=== PATIENT | female | born 1955 | race Caucasian/White ===

== ENCOUNTER 2024-06-29 13:00 | Outpatient (RCR) | payer MEDICARE, SELFPAY ==
--- NOTE | 2024-04-26 16:00 | PT.OIE ---
Current Diagnoses Localized adiposity (04/26/24) Lipomatosis, not elsewhere classified (04/26/24) Lymphedema, not elsewhere classified (04/26/24) Edema, unspecified (04/26/24) Visit Care Team Role Provider Type WENDY Hurtado FNP-North Attending Provider Non-Staff Family Provider Primary Care Provider Referring Provider Specialty: Family Practice Address: [address] [place] [address], [address], [place], [address] Email: Physical Therapy Initial Evaluation PT-OP-A Visit Information Start: 04/25/24 17:10 Freq: Status: Active Protocol: Document 04/26/24 10:47 SAK (Rec: 04/26/24 12:04 SAK [id number]) Out-Patient Physical Therapy Visit Information Visit Information Visit Type Initial Evaluation Visit Start Time 10:45 Visit Number 1 Evaluation Information Evaluation Date 04/26/24 PT-OP-B Current Condition Start: 04/25/24 17:10 Freq: Status: Active Protocol: Document 04/26/24 10:47 SAK (Rec: 04/26/24 12:04 SAK [id number]) Current Condition History of Current Condition Onset Date 62 yrs. Current Complaints worsening swelling in legs. History of Current Condition Had swelling in her legs since her teens, no treatment until recently. 2-3 years ago after researching online started using vibration plate, tries to walk and use E-bike but limited due to OA, no local place to go to pool. Doing anti-inflammatory diet. Worsening swelling in leg right greater than left. sot diagnosed, was up to 325 now down to 248 on semi-glutide. wears knee high compression garments current ones thinks 20-30 mm Hg. Legs have gotten worsen with puberty, childbirth, and menopause, continues to worsen, has nodules under skin, brusises easily, and has signififcant hyperextension in knees. Left leg hurts worst. Treatment Goals Patient/Caregiver Goals decreasing some of the swelling PT-OP-C Subjective Start: 04/25/24 17:10 Freq: Status: Active Protocol: Document 04/26/24 10:45 SAK (Rec: 04/27/24 08:12 SAK [id number]) Patient Questionnaires Lymphedema Life Impact Score Lymphedema Score 47 PT-OP-F Manual Assessment Start: 04/25/24 17:10 Freq: Status: Active Protocol: Document 04/26/24 10:45 SAK (Rec: 04/27/24 08:12 SAK [id number]) Manual Assessments Joint Mobility Assessment Joint Mobility Assessment hypermobility at knees PT-OP-H Neuro Start: 04/25/24 17:10 Freq: Status: Active Protocol: Document 04/26/24 10:45 SAK (Rec: 04/27/24 08:12 SAK [id number]) Sensation Evaluation Gross Sensation Gross Sensation WNL PT-OP-J Posture/Palpation/Skin Start: 04/25/24 17:10 Freq: Status: Active Protocol: Document 04/26/24 10:47 SAK (Rec: 04/26/24 12:04 SAK [id number]) Skin Assessment Edema Assessment Bilateral Leg Edema Type Non-Pitting Edema Appearance Dimpled,Puffy Subjective Edema Description Pain Comments palpable nodules brendan LE's, worst medial right LE sup/med knee PT-OP-K Range of Motion Start: 04/25/24 17:10 Freq: Status: Active Protocol: Document 04/26/24 10:45 SAK (Rec: 04/27/24 08:12 SAK [id number]) Shoulder Goniometric Range of Motion Shoulder brendan Shoulder ROM WFL Yes Elbow/Forearm Range of Motion Elbow/Forearm brendan Elbow/Forearm ROM WFL Yes Hip Goniometric Range of Motion Hip brendan Hip ROM WFL Yes Knee Goniometric Range of Motion Knee brendan Knee ROM WFL No Knee ROM Limitations Knee ROM Limitations Swelling Comments swelling and lipedema Ankle and Foot Goniometric Range of Motion Ankle and Foot brendan Ankle/Foot ROM WFL Yes PT-OP-N Lymphedema Start: 04/25/24 17:10 Freq: Status: Active Protocol: Document 04/26/24 10:47 SAK (Rec: 04/26/24 12:04 SAK [id number]) Lymphedema Measurements Upper Extremity Circumference Measurements left MCP 20.4 cm Dorsum of Hand 20.2 cm Wrist 17.5 cm 5 cm From Wrist Crease 21.2 cm 10 cm From Wrist Crease 24.1 cm 15 cm From Wrist Crease 26.8 cm 20 cm From Wrist Crease 27.9 cm 25 cm From Wrist Crease 33.6 cm 30 cm From Wrist Crease 36 cm 35 cm From Wrist Crease 46 cm 40 cm From Wrist Crease 43.3 cm Elbow Joint 33.6 cm right MCP 20.6 cm Dorsum of Hand 21.2 cm Wrist 17.8 cm 5 cm From Wrist Crease 19.9 cm 10 cm From Wrist Crease 25.7 cm 15 cm From Wrist Crease 28.9 cm 20 cm From Wrist Crease 30.6 cm 25 cm From Wrist Crease 39.3 cm 30 cm From Wrist Crease 50.3 cm 35 cm From Wrist Crease 48.2 cm 40 cm From Wrist Crease 48.2 cm Elbow Joint 30.7 cm Lower Extremity Circumference Measurements left MT Heads 24 cm Mid-foot 24.8 cm Medial Malleolus 33.3 cm 10 cm From Medial Malleolus 46.7 cm 20 cm From Medial Malleolus 54 cm 30 cm From Medial Malleolus 55.5 cm 40 cm From Medial Malleolus 58.8 cm 50 cm From Medial Malleolus 65.8 cm 60 cm From Medial Malleolus 68 cm 70 cm From Medial Malleolus 81.3 cm Knee Joint 58.8 cm right MT Heads 24.8 cm Mid-foot 26 cm Medial Malleolus 31.3 cm 10 cm From Medial Malleolus 49.7 cm 20 cm From Medial Malleolus 55.1 cm 30 cm From Medial Malleolus 58.3 cm 40 cm From Medial Malleolus 61.2 cm 50 cm From Medial Malleolus 65.5 cm 60 cm From Medial Malleolus 70 cm 70 cm From Medial Malleolus 75.5 cm Knee Joint 58.3 cm - waist 113.5 cm widest hip 132.4 cm under breasts 103.5cm PT-OP-Q Treatments Start: 04/25/24 17:10 Freq: Status: Active Protocol: Document 04/26/24 10:45 CEDRICK (Rec: 04/27/24 08:12 [facility] [id number]) Lymphedema Treatment Manual Lymphatic Drainage Location initiated withpatient instruction Duration 25 Lymphedema Wrapping Other Not done today, discussed bandaging and garments Sequential Lymphedema Exercises Comments instructed Compression Garment Assessment Compression Garment Assessment Details discussed, recommend Bioflect or Juzo sensation Patient Education Lymphedema Pathology instructed and issued HO Lymphedema Prevention instructed and issued HO Lymphedema Precautions instructed and issued HO Compression Garments discussed options Self Manual Lymphatic Drainage instructed and issued HO PT-OP-T Assessment and Plan Start: 04/25/24 17:10 Freq: Status: Active Protocol: Document 04/26/24 10:45 [facility] (Rec: 04/27/24 08:12 [facility] [id number]) Physical Therapy Assessment Rehab Potential Rehabilitation Potential Good Evaluation Complexity Number of Personal Factors/Comorbidities 1-2 Number of Body Systems Impaired 3 Clinical Presentation at Evaluation Evolving Impairments Impairments Activity Tolerance,Edema,Pain, Soft Tissue Mobility Goals Two Impairment LYmphedema Life Impact scale 47% Short Term Goal (STG) Decrease Lymphedema Life Impact Scale to no greater than 35% as measure of improved activity tolerance and quality of life. STG Duration 06/09/24 Director Of Oncology Goal (LTG) Decrease Lymphedema Life Impact Scale to no greater than 20% as measure of improved activity tolerance and quality of life. LTG Duration 07/27/24 One Impairment Lipedema and lymphedema brendan LE 's, lipedema brendan UE's Short Term Goal (STG) Patient will be instructed in all aspects of lymphedema and lipedema self-care to include skin care, elevation, self- massage, self-bandaging/ compression options, and lymphedema exercises. STG Duration 06/09/24 Custodial Goal (LTG) Decrease patient?s lymphedema and lipedema to a stable level (no increase or decrease greater than 1 cm over the course of 1 week), patient to be independent with all aspects of self-care for lymphedema, and will obtain appropriate compression garment for lymphedema management in the home. LTG Duration 07/27/24 Assessment Summary Assessment Patient presents to PT with function-limiting lipedema and lymphedema (lipolymphedema) brendan LE's with lipedema evident in UE's as well. Patient reports has always had larger legs, got worse with at puberty, with childbirth, and menopause, and continues to worsent. Not diagnosed until recently, no treatment except does wear knee high compression stockings. 2-3 years ago after researching online started using vibration plate, tries to walk and use E-bike but limited due to OA, no local place to go to pool for aquatic exercise. Doing anti-inflammatory diet. Worsening swelling in legs vs UE's right greater than left. Trying to lose weight; was up to 325 now down to 248 on semi-glutide. Wears knee high compression garments current ones thinks 20-30 mm Hg. Legs have gotten worsen with puberty, childbirth, and menopause, continues to worsen , has nodules under skin, brusises easily, and has signififcant hyperextension in knees. Left leg hurts worst. Feel she would benefit from PT for Complete Decongestive Therapy to help her achieve the above goals. POC was discussed and patient was in agreement. [ End ] Physical Therapy Plan Frequency and Duration Frequency of Treatment 20 Duration of treatment (weeks) 12 Plan of Care Start Date 04/27/24 Plan of Care End Date 07/28/24 Therapeutic Interventions Therapeutic Interventions Home Exercise Program, Lymphedema Management,Manual Therapy,Patient/Caregiver Education,Self-Care/Home Management,Soft Tissue Mobilization,Taping, Therapeutic Activities, Therapeutic Exercises Modalities Vasopneumatic Devices Next Visit Focus/Plan Next Note Type Treatment Note Next Visit Plan Continue CDT
--- NOTE | 2024-04-26 16:00 | PT.OPPOC ---
Physical, Occupational & Speech Therapy At [facility] Current Diagnoses Localized adiposity (04/26/24) Lipomatosis, not elsewhere classified (04/26/24) Lymphedema, not elsewhere classified (04/26/24) Edema, unspecified (04/26/24) Visit Care Team Role Provider Type WENDY Hurtado, INFORMATION SECURITY ASSOCIATE-C Attending Provider Non-Staff Family Provider Primary Care Provider Referring Provider Specialty: Family Practice Address: [address] [place] [address], [address], [place], [address] Email: Plan Of Care PT-OP-B Current Condition Start: 04/25/24 17:10 Freq: Status: Active Protocol: Document 04/26/24 10:47 SAK (Rec: 04/26/24 12:04 SAK [id number]) Current Condition History of Current Condition Onset Date 62 yrs. Current Complaints worsening swelling in legs. History of Current Condition Had swelling in her legs since her teens, no treatment until recently. 2-3 years ago after researching online started using vibration plate, tries to walk and use E-bike but limited due to OA, no local place to go to pool. Doing anti-inflammatory diet. Worsening swelling in leg right greater than left. sot diagnosed, was up to 325 now down to 248 on semi-glutide. wears knee high compression garments current ones thinks 20-30 mm Hg. Legs have gotten worsen with puberty, childbirth, and menopause, continues to worsen, has nodules under skin, brusises easily, and has signififcant hyperextension in knees. Left leg hurts worst. Treatment Goals Patient/Caregiver Goals decreasing some of the swelling PT-OP-T Assessment and Plan Start: 04/25/24 17:10 Freq: Status: Active Protocol: Document 04/26/24 10:45 SAK (Rec: 04/27/24 08:12 SAK [id number]) Physical Therapy Assessment Rehab Potential Rehabilitation Potential Good Evaluation Complexity Number of Personal Factors/Comorbidities 1-2 Number of Body Systems Impaired 3 Clinical Presentation at Evaluation Evolving Impairments Impairments Activity Tolerance,Edema,Pain, Soft Tissue Mobility Goals Two Impairment LYmphedema Life Impact scale 47% Short Term Goal (STG) Decrease Lymphedema Life Impact Scale to no greater than 35% as measure of improved activity tolerance and quality of life. STG Duration 06/09/24 Airline Pilot/First Officer Goal (LTG) Decrease Lymphedema Life Impact Scale to no greater than 20% as measure of improved activity tolerance and quality of life. LTG Duration 07/27/24 One Impairment Lipedema and lymphedema brendan LE 's, lipedema brendan UE's Short Term Goal (STG) Patient will be instructed in all aspects of lymphedema and lipedema self-care to include skin care, elevation, self- massage, self-bandaging/ compression options, and lymphedema exercises. STG Duration 06/09/24 Airline Pilot/First Officer Goal (LTG) Decrease patient?s lymphedema and lipedema to a stable level (no increase or decrease greater than 1 cm over the course of 1 week), patient to be independent with all aspects of self-care for lymphedema, and will obtain appropriate compression garment for lymphedema management in the home. LTG Duration 07/27/24 Assessment Summary Assessment Patient presents to PT with function-limiting lipedema and lymphedema (lipolymphedema) brendan LE's with lipedema evident in UE's as well. Patient reports has always had larger legs, got worse with at puberty, with childbirth, and menopause, and continues to worsent. Not diagnosed until recently, no treatment except does wear knee high compression stockings. 2-3 years ago after researching online started using vibration plate, tries to walk and use E-bike but limited due to OA, no local place to go to pool for aquatic exercise. Doing anti-inflammatory diet. Worsening swelling in legs vs UE's right greater than left. Trying to lose weight; was up to 325 now down to 248 on semi-glutide. Wears knee high compression garments current ones thinks 20-30 mm Hg. Legs have gotten worsen with puberty, childbirth, and menopause, continues to worsen , has nodules under skin, brusises easily, and has signififcant hyperextension in knees. Left leg hurts worst. Feel she would benefit from PT for Complete Decongestive Therapy to help her achieve the above goals. POC was discussed and patient was in agreement. [ End ] Physical Therapy Plan Frequency and Duration Frequency of Treatment 20 Duration of treatment (weeks) 12 Plan of Care Start Date 04/27/24 Plan of Care End Date 07/28/24 Therapeutic Interventions Therapeutic Interventions Home Exercise Program, Lymphedema Management,Manual Therapy,Patient/Caregiver Education,Self-Care/Home Management,Soft Tissue Mobilization,Taping, Therapeutic Activities, Therapeutic Exercises Modalities Vasopneumatic Devices Next Visit Focus/Plan Next Note Type Treatment Note Next Visit Plan Continue CDT Plan of Care Dates Plan of Care Start Date 04/27/24 Plan of Care End Date 07/28/24 Electronically Signed by: Shayla Osorio, PT 04/27/24 1505 If you are in agreement with this Plan of Care, please return a signed and dated copy. I have reviewed this Plan of Care and certify that the skilled therapy services above are required to meet the patient?s needs. Physician Signature Date Printed Name and Credentials Clinical Instructor Signature Printed Name and Credentials
--- NOTE | 2024-05-23 12:15 | PT-OP ANOTE ---
cancelled due to insurance issues.
--- NOTE | 2024-05-26 10:33 | PT.OTN ---
Current Diagnoses Localized adiposity (05/26/24) Lipomatosis, not elsewhere classified (05/26/24) Lymphedema, not elsewhere classified (05/26/24) Edema, unspecified (05/26/24) Physical Therapy Treatment Note PT-OP-A Visit Information Start: 04/25/24 17:10 Freq: Status: Active Protocol: Document 05/26/24 09:04 SAK (Rec: 05/26/24 10:32 SAK Laptop) Out-Patient Physical Therapy Visit Information Visit Information Visit Type Treatment Note Visit Start Time 09:00 Visit Stop Time 10:25 Visit Number 2 Evaluation Information Evaluation Date 04/26/24 PT-OP-B Current Condition Start: 04/25/24 17:10 Freq: Status: Active Protocol: Document 05/26/24 09:04 SAK (Rec: 05/26/24 10:32 SAK Laptop) Current Condition History of Current Condition Onset Date 62 yrs. Current Complaints worsening swelling in legs. History of Current Condition Had swelling in her legs since her teens, no treatment until recently. 2-3 years ago after researching online started using vibration plate, tries to walk and use E-bike but limited due to OA, no local place to go to pool. Doing anti-inflammatory diet. Worsening swelling in leg right greater than left. sot diagnosed, was up to 325 now down to 248 on semi-glutide. wears knee high compression garments current ones thinks 20-30 mm Hg. Legs have gotten worsen with puberty, childbirth, and menopause, continues to worsen, has nodules under skin, brusises easily, and has signififcant hyperextension in knees. Left leg hurts worst. PT-OP-C Subjective Start: 04/25/24 17:10 Freq: Status: Active Protocol: Document 05/26/24 09:04 SAK (Rec: 05/26/24 10:32 SAK Laptop) OP-PT Subjective Patient Comments Patient Comments Reports talked with [employer], garments not covered. Patient will be ordering online by herself, will measure herself. Has lost 5 more pounds after switching to Tirzerpide. PT-OP-F Manual Assessment Start: 04/25/24 17:10 Freq: Status: Active Protocol: Document 04/26/24 10:45 SAK (Rec: 04/27/24 08:12 SAK [id number]) Manual Assessments Joint Mobility Assessment Joint Mobility Assessment hypermobility at knees PT-OP-H Neuro Start: 04/25/24 17:10 Freq: Status: Active Protocol: Document 04/26/24 10:45 SAK (Rec: 04/27/24 08:12 [facility] [id number]) Sensation Evaluation Gross Sensation Gross Sensation WNL PT-OP-J Posture/Palpation/Skin Start: 04/25/24 17:10 Freq: Status: Active Protocol: Document 04/26/24 10:47 SAK (Rec: 04/26/24 12:04 [facility] [id number]) Skin Assessment Edema Assessment Bilateral Leg Edema Type Non-Pitting Edema Appearance Dimpled,Puffy Subjective Edema Description Pain Comments palpable nodules brendan LE's, worst medial right LE sup/med knee PT-OP-K Range of Motion Start: 04/25/24 17:10 Freq: Status: Active Protocol: Document 04/26/24 10:45 SAK (Rec: 04/27/24 08:12 [facility] [id number]) Shoulder Goniometric Range of Motion Shoulder brendan Shoulder ROM WFL Yes Elbow/Forearm Range of Motion Elbow/Forearm brendan Elbow/Forearm ROM WFL Yes Hip Goniometric Range of Motion Hip brendan Hip ROM WFL Yes Knee Goniometric Range of Motion Knee brendan Knee ROM WFL No Knee ROM Limitations Knee ROM Limitations Swelling Comments swelling and lipedema Ankle and Foot Goniometric Range of Motion Ankle and Foot brendan Ankle/Foot ROM WFL Yes PT-OP-N Lymphedema Start: 04/25/24 17:10 Freq: Status: Active Protocol: Document 05/26/24 09:04 SAK (Rec: 05/26/24 10:32 [facility] Laptop) Lymphedema Measurements Upper Extremity Circumference Measurements left MCP 20.4 cm Dorsum of Hand 20.2 cm Wrist 17.5 cm 5 cm From Wrist Crease 21.2 cm 10 cm From Wrist Crease 24.1 cm 15 cm From Wrist Crease 26.8 cm 20 cm From Wrist Crease 27.9 cm 25 cm From Wrist Crease 33.6 cm 30 cm From Wrist Crease 36 cm 35 cm From Wrist Crease 46 cm 40 cm From Wrist Crease 43.3 cm Elbow Joint 33.6 cm right MCP 20.6 cm Dorsum of Hand 21.2 cm Wrist 17.8 cm 5 cm From Wrist Crease 19.9 cm 10 cm From Wrist Crease 25.7 cm 15 cm From Wrist Crease 28.9 cm 20 cm From Wrist Crease 30.6 cm 25 cm From Wrist Crease 39.3 cm 30 cm From Wrist Crease 50.3 cm 35 cm From Wrist Crease 48.2 cm 40 cm From Wrist Crease 48.2 cm Elbow Joint 30.7 cm Lower Extremity Circumference Measurements left MT Heads 24 cm Mid-foot 24.8 cm Medial Malleolus 33.3 cm 10 cm From Medial Malleolus 46.7 cm 20 cm From Medial Malleolus 54 cm 30 cm From Medial Malleolus 55.5 cm 40 cm From Medial Malleolus 58.8 cm 50 cm From Medial Malleolus 65.8 cm 60 cm From Medial Malleolus 68 cm 70 cm From Medial Malleolus 81.3 cm Knee Joint 58.8 cm right MT Heads 24.8 cm Mid-foot 26 cm Medial Malleolus 31.3 cm 10 cm From Medial Malleolus 49.7 cm 20 cm From Medial Malleolus 55.1 cm 30 cm From Medial Malleolus 58.3 cm 40 cm From Medial Malleolus 61.2 cm 50 cm From Medial Malleolus 65.5 cm 60 cm From Medial Malleolus 70 cm 70 cm From Medial Malleolus 75.5 cm Knee Joint 58.3 cm - waist 113.5 cm widest hip 132.4 cm under breasts 103.5cm PT-OP-Q Treatments Start: 04/25/24 17:10 Freq: Status: Active Protocol: Document 05/26/24 09:04 [facility] (Rec: 05/26/24 10:32 [facility] Laptop) Lymphedema Treatment Manual Lymphatic Drainage Location brendan LE's with patient review technique Duration 50 Comments Sequential pneumatic pump opp side receiving MLD: 30 mm Hg max. Lymphedema Wrapping Body Location brendan LE's ankles to knees Materials Tricofix size G, Artiflex (2 ea side) and Comprilan (8,10 ea side), reported felt good, will consider bandaging above knees next session. Also issued loaner size L velcro compression bandage for trial. Sequential Lymphedema Exercises Comments Nu Step x 6 min L1 after bandaging Compression Garment Assessment Compression Garment Assessment Details Pt to order Bioflect Patient Education Lymphedema Pathology reviewed Lymphedema Prevention reviewed Lymphedema Precautions reviewed Compression Garments further discussion, pt. to order Self Manual Lymphatic Drainage reviewed PT-OP-T Assessment and Plan Start: 04/25/24 17:10 Freq: Status: Active Protocol: Document 05/26/24 09:04 SAK (Rec: 05/26/24 10:32 [facility] Laptop) Physical Therapy Assessment Impairments Impairments Activity Tolerance,Edema,Pain, Soft Tissue Mobility Goals Two Impairment LYmphedema Life Impact scale 47% Short Term Goal (STG) Decrease Lymphedema Life Impact Scale to no greater than 35% as measure of improved activity tolerance and quality of life. STG Duration 06/09/24 Custodial Goal (LTG) Decrease Lymphedema Life Impact Scale to no greater than 20% as measure of improved activity tolerance and quality of life. LTG Duration 07/27/24 One Impairment Lipedema and lymphedema brendan LE 's, lipedema brendan UE's Short Term Goal (STG) Patient will be instructed in all aspects of lymphedema and lipedema self-care to include skin care, elevation, self- massage, self-bandaging/ compression options, and lymphedema exercises. STG Duration 06/09/24 Checking Department Supervisor Goal (LTG) Decrease patient?s lymphedema and lipedema to a stable level (no increase or decrease greater than 1 cm over the course of 1 week), patient to be independent with all aspects of self-care for lymphedema, and will obtain appropriate compression garment for lymphedema management in the home. LTG Duration 07/27/24 Assessment Summary Assessment No change in circumferential measurements due to no treatment since eval due to waiting for insurance. Patient compliant to wearing knee high, has not yet gotten Bioflect, found out insurance won't cover but is going to order on her own. Trial sequential pneumatic pump today with good tolerance and decrease in circumferential measurements. REcommend consideration for home use. Physical Therapy Plan Frequency and Duration Frequency of Treatment 20 Duration of treatment (weeks) 12 Plan of Care Start Date 04/27/24 Plan of Care End Date 07/28/24 Therapeutic Interventions Therapeutic Interventions Home Exercise Program, Lymphedema Management,Manual Therapy,Patient/Caregiver Education,Self-Care/Home Management,Soft Tissue Mobilization,Taping, Therapeutic Activities, Therapeutic Exercises Modalities Vasopneumatic Devices Next Visit Focus/Plan Next Note Type Treatment Note Next Visit Plan Assess response to compression bandaging. Consider bandaging above knee to upper thigh. Continue CDT, consider requesting sequential pneumatic pump.
--- NOTE | 2024-05-30 16:53 | PT.OTN ---
Current Diagnoses Localized adiposity (05/30/24) Lipomatosis, not elsewhere classified (05/30/24) Lymphedema, not elsewhere classified (05/30/24) Edema, unspecified (05/30/24) Physical Therapy Treatment Note PT-OP-A Visit Information Start: 04/25/24 17:10 Freq: Status: Active Protocol: Document 05/30/24 13:13 SAK (Rec: 05/30/24 13:36 SAK Laptop) Out-Patient Physical Therapy Visit Information Visit Information Visit Type Treatment Note Visit Start Time 13:01 Visit Stop Time 14:25 Visit Number 3 Evaluation Information Evaluation Date 04/26/24 PT-OP-B Current Condition Start: 04/25/24 17:10 Freq: Status: Active Protocol: Document 05/30/24 13:13 SAK (Rec: 05/30/24 13:36 SAK Laptop) Current Condition History of Current Condition Onset Date 62 yrs. Current Complaints worsening swelling in legs, hips, abdomen. History of Current Condition Had swelling in her legs since her teens, no treatment until recently. 2-3 years ago after researching online started using vibration plate, tries to walk and use E-bike but limited due to OA, no local place to go to pool. Doing anti-inflammatory diet. Worsening swelling in leg right greater than left. sot diagnosed, was up to 325 now down to 248 on semi-glutide. wears knee high compression garments current ones thinks 20-30 mm Hg. Legs have gotten worsen with puberty, childbirth, and menopause, continues to worsen, has nodules under skin, brusises easily, and has signififcant hyperextension in knees. Left leg hurts worst. More edema by the end of the day. 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 Compliant with skin care, elevating, self MLD, compression, exercise, and using vibration plate. Very interested in obtaining sequential pneumatic pump. Has ordered Bioflect compression garments; pantyhose style. Was able to walk at grocery store for short trip instead of use motorized cart while bandaged. Increased LE lymphedema end of day, has returned to work and notices difference. Very interested in obtaining sequential pneumatic pump for home use. PT-OP-F Manual Assessment Start: 04/25/24 17:10 Freq: Status: Active Protocol: Document 04/26/24 10:45 SAK (Rec: 04/27/24 08:12 SAK [id number]) Manual Assessments Joint Mobility Assessment Joint Mobility Assessment hypermobility at knees PT-OP-H Neuro Start: 04/25/24 17:10 Freq: Status: Active Protocol: Document 04/26/24 10:45 SAK (Rec: 04/27/24 08:12 SAK [id number]) Sensation Evaluation Gross Sensation Gross Sensation WNL PT-OP-J Posture/Palpation/Skin Start: 04/25/24 17:10 Freq: Status: Active Protocol: Document 04/26/24 10:47 SAK (Rec: 04/26/24 12:04 SAK [id number]) Skin Assessment Edema Assessment Bilateral Leg Edema Type Non-Pitting Edema Appearance Dimpled,Puffy Subjective Edema Description Pain Comments palpable nodules brendan LE's, worst medial right LE sup/med knee PT-OP-K Range of Motion Start: 04/25/24 17:10 Freq: Status: Active Protocol: Document 04/26/24 10:45 SAK (Rec: 04/27/24 08:12 SAK [id number]) Shoulder Goniometric Range of Motion Shoulder brendan Shoulder ROM WFL Yes Elbow/Forearm Range of Motion Elbow/Forearm brenadn Elbow/Forearm ROM WFL Yes Hip Goniometric Range of Motion Hip brendan Hip ROM WFL Yes Knee Goniometric Range of Motion Knee brendan Knee ROM WFL No Knee ROM Limitations Knee ROM Limitations Swelling Comments swelling and lipedema Ankle and Foot Goniometric Range of Motion Ankle and Foot brendan Ankle/Foot ROM WFL Yes PT-OP-N Lymphedema Start: 04/25/24 17:10 Freq: Status: Active Protocol: Document 05/30/24 13:13 CEDRICK (Rec: 05/30/24 13:36 [facility] Laptop) Lymphedema Measurements Lower Extremity Circumference Measurements left MT Heads 24.3 cm Mid-foot 24.8 cm Medial Malleolus 28.8 cm 10 cm From Medial Malleolus 46.7 cm 20 cm From Medial Malleolus 53.8 cm 30 cm From Medial Malleolus 54.8 cm 40 cm From Medial Malleolus 58.3 cm 50 cm From Medial Malleolus 63.8 cm 60 cm From Medial Malleolus 66.2 cm 70 cm From Medial Malleolus 82.9 cm Knee Joint 58.3 cm right MT Heads 24.7 cm Mid-foot 24.3 cm Medial Malleolus 29.9 cm 10 cm From Medial Malleolus 50.7 cm 20 cm From Medial Malleolus 56.2 cm 30 cm From Medial Malleolus 58 cm 40 cm From Medial Malleolus 60.7 cm 50 cm From Medial Malleolus 67.4 cm 60 cm From Medial Malleolus 69.5 cm 70 cm From Medial Malleolus 74.8 cm Knee Joint 58 cm - waist 113.5 cm widest hip 132.4 cm under breasts 103.5cm PT-OP-Q Treatments Start: 04/25/24 17:10 Freq: Status: Active Protocol: Document 05/30/24 13:13 CEDRICK (Rec: 05/30/24 13:36 [facility] Laptop) Lymphedema Treatment Manual Lymphatic Drainage Location brendan LE's with patient review technique Duration 50 Comments Sequential pneumatic pump opp side receiving MLD: 30 mm Hg max. Lymphedema Wrapping Body Location brendan LE's ankles to upper thighs Materials Tricofix size G, Artiflex (4 ea side) and Comprilan (8,10x2 , 12x2 ea side). Sequential Lymphedema Exercises Duration 10 Comments Nu Step x 10 min L1 after bandaging Compression Garment Assessment Compression Garment Assessment Details Has ordered Bioflect pantyhose style for LE's, will consider for UE's Patient Education Compression Garments pt. has ordered Bioflect garments, brought all other garments for review Other Pt advised on considering layering compression or using bandaging over Bioflect when highly physically active PT-OP-T Assessment and Plan Start: 04/25/24 17:10 Freq: Status: Active Protocol: Document 05/30/24 13:13 SAK (Rec: 05/30/24 13:36 SAK Laptop) Physical Therapy Assessment Impairments Impairments Activity Tolerance,Edema,Pain, Soft Tissue Mobility Goals Two Impairment LYmphedema Life Impact scale 47% Short Term Goal (STG) Decrease Lymphedema Life Impact Scale to no greater than 35% as measure of improved activity tolerance and quality of life. 05/30/24: Patient demosntrating much improved understanding of lipolymphedema and how to manage. Self bandaging difficult. Doing dry brushing every night, exercises, elevates. STG Duration 06/09/24 [facility] Goal (LTG) Decrease Lymphedema Life Impact Scale to no greater than 20% as measure of improved activity tolerance and quality of life. LTG Duration 07/27/24 One Impairment Lipedema and lymphedema brendan LE 's, lipedema brendan UE's Short Term Goal (STG) Patient will be instructed in all aspects of lymphedema and lipedema self-care to include skin care, elevation, self- massage, self-bandaging/ compression options, and lymphedema exercises. 05/30/24: goal met STG Duration 06/09/24 [facility] Goal (LTG) Decrease patient?s lymphedema and lipedema to a stable level (no increase or decrease greater than 1 cm over the course of 1 week), patient to be independent with all aspects of self-care for lymphedema, and will obtain appropriate compression garment for lymphedema management in the home. 05/30/24: goal progress LTG Duration 07/27/24 Assessment Summary Assessment Patient has been seen in physical therapy for over 30 days and continues to have challenges in managing her lipo-lymphedema. Her legs are more swollen by the end of the work day and she has to use a motorized scooter at grocery store. She has been compliant with elevation, self MLD, exercise, skin care, and compression. Despite this her lipo-lymphedema is difficult to manage. 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 Due to body size from lipedema has difficulty reaching her LE's. Feel she would benefit highly from the use of a sequential pneumatic pump to assist her in her self care. She is highly receptive and interested in the use of a sequential pneumatic pump. Due to the lipedema affecting her thighs and abdomen she will need pants style garment for most beneficial treatment. Physical Therapy Plan Frequency and Duration Frequency of Treatment 20 Duration of treatment (weeks) 12 Plan of Care Start Date 04/27/24 Plan of Care End Date 07/28/24 Therapeutic Interventions Therapeutic Interventions Home Exercise Program, Lymphedema Management,Manual Therapy,Patient/Caregiver Education,Self-Care/Home Management,Soft Tissue Mobilization,Taping, Therapeutic Activities, Therapeutic Exercises Modalities Vasopneumatic Devices Next Visit Focus/Plan Next Note Type Treatment Note Next Visit Plan Continue CDT, evaluate fit of Bioflect, continue bandaging and use of compression tights for compression until receives . Request order for sequential pneumatic pump.
--- NOTE | 2024-05-31 09:12 | PT.OTN ---
Current Diagnoses Localized adiposity (05/31/24) Lipomatosis, not elsewhere classified (05/31/24) Lymphedema, not elsewhere classified (05/31/24) Edema, unspecified (05/31/24) Physical Therapy Treatment Note PT-OP-A Visit Information Start: 04/25/24 17:10 Freq: Status: Active Protocol: Document 05/31/24 08:11 SAK (Rec: 05/31/24 08:32 SAK Laptop) Out-Patient Physical Therapy Visit Information Visit Information Visit Type Treatment Note Visit Start Time 08:13 Visit Stop Time 09:43 Visit Number 4 Evaluation Information Evaluation Date 04/26/24 PT-OP-B Current Condition Start: 04/25/24 17:10 Freq: Status: Active Protocol: Document 05/31/24 08:11 SAK (Rec: 05/31/24 08:32 SAK Laptop) Current Condition History of Current Condition Onset Date 62 yrs. Current Complaints worsening swelling in legs, hips, abdomen. History of Current Condition Had swelling in her legs since her teens, no treatment until recently. 2-3 years ago after researching online started using vibration plate, tries to walk and use E-bike but limited due to OA, no local place to go to pool. Doing anti-inflammatory diet. Worsening swelling in leg right greater than left. sot diagnosed, was up to 325 now down to 248 on semi-glutide. wears knee high compression garments current ones thinks 20-30 mm Hg. Legs have gotten worsen with puberty, childbirth, and menopause, continues to worsen, has nodules under skin, brusises easily, and has signififcant hyperextension in knees. Left leg hurts worst. More edema by the end of the day. Diagnosed with lipedema 2 years ago, feels has known has had her whole life but difficulty getting doctors to understand and has increased swelling end of day including into feet (lipo-lymphedema) Treatment Goals Patient/Caregiver Goals decreasing lipo-lymphedema, and be able to self manage PT-OP-C Subjective Start: 04/25/24 17:10 Freq: Status: Active Protocol: Document 05/31/24 08:11 SAK (Rec: 05/31/24 08:32 SAK Laptop) OP-PT Subjective Patient Comments Patient Comments No new c/o. Hasn't received Bioflect garment yet. Brought bandages for bandaging, considering wearing Bioflect during the day, bandage at night. States she is learning a lot from PT, working on her breathing and exercise, doing self massage, elevation, and skin care. Patient Reported Progress Improving PT-OP-F Manual Assessment Start: 04/25/24 17:10 Freq: Status: Active Protocol: Document 04/26/24 10:45 SAK (Rec: 04/27/24 08:12 [facility] [id number]) Manual Assessments Joint Mobility Assessment Joint Mobility Assessment hypermobility at knees PT-OP-H Neuro Start: 04/25/24 17:10 Freq: Status: Active Protocol: Document 04/26/24 10:45 SAK (Rec: 04/27/24 08:12 [facility] [id number]) Sensation Evaluation Gross Sensation Gross Sensation WNL PT-OP-J Posture/Palpation/Skin Start: 04/25/24 17:10 Freq: Status: Active Protocol: Document 04/26/24 10:47 SAK (Rec: 04/26/24 12:04 [facility] [id number]) Skin Assessment Edema Assessment Bilateral Leg Edema Type Non-Pitting Edema Appearance Dimpled,Puffy Subjective Edema Description Pain Comments palpable nodules brendan LE's, worst medial right LE sup/med knee PT-OP-K Range of Motion Start: 04/25/24 17:10 Freq: Status: Active Protocol: Document 04/26/24 10:45 SAK (Rec: 04/27/24 08:12 [facility] [id number]) Shoulder Goniometric Range of Motion Shoulder brendan Shoulder ROM WFL Yes Elbow/Forearm Range of Motion Elbow/Forearm brendan Elbow/Forearm ROM WFL Yes Hip Goniometric Range of Motion Hip brendan Hip ROM WFL Yes Knee Goniometric Range of Motion Knee brendan Knee ROM WFL No Knee ROM Limitations Knee ROM Limitations Swelling Comments swelling and lipedema Ankle and Foot Goniometric Range of Motion Ankle and Foot brendan Ankle/Foot ROM WFL Yes PT-OP-N Lymphedema Start: 04/25/24 17:10 Freq: Status: Active Protocol: Document 05/30/24 13:13 SAK (Rec: 05/30/24 13:36 SAK Laptop) Lymphedema Measurements Lower Extremity Circumference Measurements left MT Heads 24.3 cm Mid-foot 24.8 cm Medial Malleolus 28.8 cm 10 cm From Medial Malleolus 46.7 cm 20 cm From Medial Malleolus 53.8 cm 30 cm From Medial Malleolus 54.8 cm 40 cm From Medial Malleolus 58.3 cm 50 cm From Medial Malleolus 63.8 cm 60 cm From Medial Malleolus 66.2 cm 70 cm From Medial Malleolus 82.9 cm Knee Joint 58.3 cm right MT Heads 24.7 cm Mid-foot 24.3 cm Medial Malleolus 29.9 cm 10 cm From Medial Malleolus 50.7 cm 20 cm From Medial Malleolus 56.2 cm 30 cm From Medial Malleolus 58 cm 40 cm From Medial Malleolus 60.7 cm 50 cm From Medial Malleolus 67.4 cm 60 cm From Medial Malleolus 69.5 cm 70 cm From Medial Malleolus 74.8 cm Knee Joint 58 cm - waist 113.5 cm widest hip 132.4 cm under breasts 103.5cm PT-OP-Q Treatments Start: 04/25/24 17:10 Freq: Status: Active Protocol: Document 05/31/24 08:11 [facility] (Rec: 05/31/24 09:11 [facility] Laptop) Lymphedema Treatment Manual Lymphatic Drainage Location brendan LE's with patient review technique Duration 50 Comments Sequential pneumatic pump opp side receiving MLD: 30 mm Hg max. Lymphedema Wrapping Body Location brendan LE's ankles to knees Materials Tricofix size G, Artiflex (2 ea side) and Comprilan (8,10 ea side). Sequential Lymphedema Exercises Duration 10 Comments Nu Step x 10 min L1 after bandaging Compression Garment Assessment Compression Garment Assessment Details Has ordered Bioflect pantyhose style for LE's, will consider for UE's Patient Education Self Manual Lymphatic Drainage continue education during MLD. PT-OP-T Assessment and Plan Start: 04/25/24 17:10 Freq: Status: Active Protocol: Document 05/31/24 08:11 [facility] (Rec: 05/31/24 08:32 [facility] Laptop) Physical Therapy Assessment Impairments Impairments Activity Tolerance,Edema,Pain, Soft Tissue Mobility Goals Two Impairment LYmphedema Life Impact scale 47% Short Term Goal (STG) Decrease Lymphedema Life Impact Scale to no greater than 35% as measure of improved activity tolerance and quality of life. 05/30/24: Patient demosntrating much improved understanding of lipolymphedema and how to manage. Self bandaging difficult. Doing dry brushing every night, exercises, elevates. STG Duration 06/09/24 Cardiac Cath Tech Goal (LTG) Decrease Lymphedema Life Impact Scale to no greater than 20% as measure of improved activity tolerance and quality of life. LTG Duration 07/27/24 One Impairment Lipedema and lymphedema brendan LE 's, lipedema brendan UE's Short Term Goal (STG) Patient will be instructed in all aspects of lymphedema and lipedema self-care to include skin care, elevation, self- massage, self-bandaging/ compression options, and lymphedema exercises. 05/30/24: goal met STG Duration 06/09/24 Cardiac Cath Tech Goal (LTG) Decrease patient?s lymphedema and lipedema to a stable level (no increase or decrease greater than 1 cm over the course of 1 week), patient to be independent with all aspects of self-care for lymphedema, and will obtain appropriate compression garment for lymphedema management in the home. 05/30/24: goal progress LTG Duration 07/27/24 Assessment Summary Assessment Patient continues to demonstrate improved understanding of lipolymphedema self care. Further instruction in self bandaging today with request for to knees only due to work today, should receive Bioflect soon. Physical Therapy Plan Frequency and Duration Frequency of Treatment 20 Duration of treatment (weeks) 12 Plan of Care Start Date 04/27/24 Plan of Care End Date 07/28/24 Therapeutic Interventions Therapeutic Interventions Home Exercise Program, Lymphedema Management,Manual Therapy,Patient/Caregiver Education,Self-Care/Home Management,Soft Tissue Mobilization,Taping, Therapeutic Activities, Therapeutic Exercises Modalities Vasopneumatic Devices Next Visit Focus/Plan Next Note Type Treatment Note
--- NOTE | 2024-05-31 09:40 | PT.OTN ---
Current Diagnoses Localized adiposity (05/31/24) Lipomatosis, not elsewhere classified (05/31/24) Lymphedema, not elsewhere classified (05/31/24) Edema, unspecified (05/31/24) Physical Therapy Treatment Note PT-OP-A Visit Information Start: 04/25/24 17:10 Freq: Status: Active Protocol: Document 05/31/24 08:11 SAK (Rec: 05/31/24 08:32 SAK Laptop) Out-Patient Physical Therapy Visit Information Visit Information Visit Type Treatment Note Visit Start Time 08:13 Visit Stop Time 09:43 Visit Number 4 Evaluation Information Evaluation Date 04/26/24 PT-OP-B Current Condition Start: 04/25/24 17:10 Freq: Status: Active Protocol: Document 05/31/24 08:11 SAK (Rec: 05/31/24 08:32 SAK Laptop) Current Condition History of Current Condition Onset Date 62 yrs. Current Complaints worsening swelling in legs, hips, abdomen. History of Current Condition Had swelling in her legs since her teens, no treatment until recently. 2-3 years ago after researching online started using vibration plate, tries to walk and use E-bike but limited due to OA, no local place to go to pool. Doing anti-inflammatory diet. Worsening swelling in leg right greater than left. sot diagnosed, was up to 325 now down to 248 on semi-glutide. wears knee high compression garments current ones thinks 20-30 mm Hg. Legs have gotten worsen with puberty, childbirth, and menopause, continues to worsen, has nodules under skin, brusises easily, and has signififcant hyperextension in knees. Left leg hurts worst. More edema by the end of the day. Diagnosed with lipedema 2 years ago, feels has known has had her whole life but difficulty getting doctors to understand and has increased swelling end of day including into feet (lipo-lymphedema) Treatment Goals Patient/Caregiver Goals decreasing lipo-lymphedema, and be able to self manage PT-OP-C Subjective Start: 04/25/24 17:10 Freq: Status: Active Protocol: Document 05/31/24 08:11 SAK (Rec: 05/31/24 08:32 SAK Laptop) OP-PT Subjective Patient Comments Patient Comments No new c/o. Hasn't received Bioflect garment yet. Brought bandages for bandaging, considering wearing Bioflect during the day, bandage at night. States she is learning a lot from PT, working on her breathing and exercise, doing self massage, elevation, and skin care. Patient Reported Progress Improving PT-OP-F Manual Assessment Start: 04/25/24 17:10 Freq: Status: Active Protocol: Document 04/26/24 10:45 SAK (Rec: 04/27/24 08:12 [facility] [id number]) Manual Assessments Joint Mobility Assessment Joint Mobility Assessment hypermobility at knees PT-OP-H Neuro Start: 04/25/24 17:10 Freq: Status: Active Protocol: Document 04/26/24 10:45 SAK (Rec: 04/27/24 08:12 [facility] [id number]) Sensation Evaluation Gross Sensation Gross Sensation WNL PT-OP-J Posture/Palpation/Skin Start: 04/25/24 17:10 Freq: Status: Active Protocol: Document 04/26/24 10:47 SAK (Rec: 04/26/24 12:04 [facility] [id number]) Skin Assessment Edema Assessment Bilateral Leg Edema Type Non-Pitting Edema Appearance Dimpled,Puffy Subjective Edema Description Pain Comments palpable nodules brendan LE's, worst medial right LE sup/med knee PT-OP-K Range of Motion Start: 04/25/24 17:10 Freq: Status: Active Protocol: Document 04/26/24 10:45 SAK (Rec: 04/27/24 08:12 [facility] [id number]) Shoulder Goniometric Range of Motion Shoulder brendan Shoulder ROM WFL Yes Elbow/Forearm Range of Motion Elbow/Forearm brendan Elbow/Forearm ROM WFL Yes Hip Goniometric Range of Motion Hip brendan Hip ROM WFL Yes Knee Goniometric Range of Motion Knee brendan Knee ROM WFL No Knee ROM Limitations Knee ROM Limitations Swelling Comments swelling and lipedema Ankle and Foot Goniometric Range of Motion Ankle and Foot brendan Ankle/Foot ROM WFL Yes PT-OP-N Lymphedema Start: 04/25/24 17:10 Freq: Status: Active Protocol: Document 05/30/24 13:13 SAK (Rec: 05/30/24 13:36 SAK Laptop) Lymphedema Measurements Lower Extremity Circumference Measurements left MT Heads 24.3 cm Mid-foot 24.8 cm Medial Malleolus 28.8 cm 10 cm From Medial Malleolus 46.7 cm 20 cm From Medial Malleolus 53.8 cm 30 cm From Medial Malleolus 54.8 cm 40 cm From Medial Malleolus 58.3 cm 50 cm From Medial Malleolus 63.8 cm 60 cm From Medial Malleolus 66.2 cm 70 cm From Medial Malleolus 82.9 cm Knee Joint 58.3 cm right MT Heads 24.7 cm Mid-foot 24.3 cm Medial Malleolus 29.9 cm 10 cm From Medial Malleolus 50.7 cm 20 cm From Medial Malleolus 56.2 cm 30 cm From Medial Malleolus 58 cm 40 cm From Medial Malleolus 60.7 cm 50 cm From Medial Malleolus 67.4 cm 60 cm From Medial Malleolus 69.5 cm 70 cm From Medial Malleolus 74.8 cm Knee Joint 58 cm - waist 113.5 cm widest hip 132.4 cm under breasts 103.5cm PT-OP-Q Treatments Start: 04/25/24 17:10 Freq: Status: Active Protocol: Document 05/31/24 08:11 [facility] (Rec: 05/31/24 09:11 [facility] Laptop) Lymphedema Treatment Manual Lymphatic Drainage Location brendan LE's and UE's with patient review technique Duration 50 Comments Sequential pneumatic pump opp side receiving MLD: 30 mm Hg max. Lymphedema Wrapping Body Location brendan LE's ankles to knees Materials Tricofix size G, Artiflex (2 ea side) and Comprilan (8,10x2 ea side). Sequential Lymphedema Exercises Location brendan UEs and LE's Duration 10 Comments Nu Step x 10 min L1 after bandaging Compression Garment Assessment Compression Garment Assessment Details Has ordered Bioflect pantyhose style for LE's, will consider for UE's Patient Education Self Manual Lymphatic Drainage continue education during MLD. PT-OP-T Assessment and Plan Start: 04/25/24 17:10 Freq: Status: Active Protocol: Document 05/31/24 08:11 [facility] (Rec: 05/31/24 08:32 [facility] Laptop) Physical Therapy Assessment Impairments Impairments Activity Tolerance,Edema,Pain, Soft Tissue Mobility Goals Two Impairment LYmphedema Life Impact scale 47% Short Term Goal (STG) Decrease Lymphedema Life Impact Scale to no greater than 35% as measure of improved activity tolerance and quality of life. 05/30/24: Patient demosntrating much improved understanding of lipolymphedema and how to manage. Self bandaging difficult. Doing dry brushing every night, exercises, elevates. STG Duration 06/09/24 Longterm Goal (LTG) Decrease Lymphedema Life Impact Scale to no greater than 20% as measure of improved activity tolerance and quality of life. LTG Duration 07/27/24 One Impairment Lipedema and lymphedema brendan LE 's, lipedema brendan UE's Short Term Goal (STG) Patient will be instructed in all aspects of lymphedema and lipedema self-care to include skin care, elevation, self- massage, self-bandaging/ compression options, and lymphedema exercises. 05/30/24: goal met STG Duration 06/09/24 Longterm Goal (LTG) Decrease patient?s lymphedema and lipedema to a stable level (no increase or decrease greater than 1 cm over the course of 1 week), patient to be independent with all aspects of self-care for lymphedema, and will obtain appropriate compression garment for lymphedema management in the home. 05/30/24: goal progress LTG Duration 07/27/24 Progress Towards Goals Progress Towards Goals Progressing Toward Goals Assessment Summary Assessment Patient continues to demonstrate improved understanding of lipolymphedema self care. Further instruction in self bandaging today with request for to knees only due to work today, should receive Bioflect soon. Receptive to trial bandaging to upper thighs next session. Will consider bioflect UE's after trial for LE's. Doesn't want to bandage UE's, feels will bet too hot. Patient aware of surgery option for lipedema but doesn' t want to do any surgery. Physical Therapy Plan Frequency and Duration Frequency of Treatment 20 Duration of treatment (weeks) 12 Plan of Care Start Date 04/27/24 Plan of Care End Date 07/28/24 Therapeutic Interventions Therapeutic Interventions Home Exercise Program, Lymphedema Management,Manual Therapy,Patient/Caregiver Education,Self-Care/Home Management,Soft Tissue Mobilization,Taping, Therapeutic Activities, Therapeutic Exercises Modalities Vasopneumatic Devices Next Visit Focus/Plan Next Note Type Treatment Note Next Visit Plan Continue CDT, consider bandaging to upper thighs next session; patient to wear looser pants and is now receptive.
--- NOTE | 2024-06-07 10:41 | PT.OTN ---
Current Diagnoses Localized adiposity (06/07/24) Lipomatosis, not elsewhere classified (06/07/24) Lymphedema, not elsewhere classified (06/07/24) Edema, unspecified (06/07/24) Physical Therapy Treatment Note PT-OP-A Visit Information Start: 04/25/24 17:10 Freq: Status: Active Protocol: Document 06/07/24 08:10 AB (Rec: 06/07/24 09:47 AB Laptop) Out-Patient Physical Therapy Visit Information Visit Information Visit Type Treatment Note Visit Start Time 08:19 Visit Stop Time 09:38 Visit Number 5 Number of CLINICAL STUDIES SPECIALIST Visits 1 Evaluation Information Evaluation Date 04/26/24 PT-OP-B Current Condition Start: 04/25/24 17:10 Freq: Status: Active Protocol: Document 05/31/24 08:11 SAK (Rec: 05/31/24 08:32 SAK Laptop) Current Condition History of Current Condition Onset Date 62 yrs. Current Complaints worsening swelling in legs, hips, abdomen. History of Current Condition Had swelling in her legs since her teens, no treatment until recently. 2-3 years ago after researching online started using vibration plate, tries to walk and use E-bike but limited due to OA, no local place to go to pool. Doing anti-inflammatory diet. Worsening swelling in leg right greater than left. sot diagnosed, was up to 325 now down to 248 on semi-glutide. wears knee high compression garments current ones thinks 20-30 mm Hg. Legs have gotten worsen with puberty, childbirth, and menopause, continues to worsen, has nodules under skin, brusises easily, and has signififcant hyperextension in knees. Left leg hurts worst. More edema by the end of the day. Diagnosed with lipedema 2 years ago, feels has known has had her whole life but difficulty getting doctors to understand and has increased swelling end of day including into feet (lipo-lymphedema) Treatment Goals Patient/Caregiver Goals decreasing lipo-lymphedema, and be able to self manage PT-OP-C Subjective Start: 04/25/24 17:10 Freq: Status: Active Protocol: Document 06/07/24 08:10 AB (Rec: 06/07/24 09:47 AB Laptop) OP-PT Subjective Patient Comments Patient Comments Patient reports she has the Bioflect is wearing Bioflect into session, did bandage all weekend. Patient reports measuring was done last session. PT-OP-F Manual Assessment Start: 04/25/24 17:10 Freq: Status: Active Protocol: Document 04/26/24 10:45 SAK (Rec: 04/27/24 08:12 [facility] [id number]) Manual Assessments Joint Mobility Assessment Joint Mobility Assessment hypermobility at knees PT-OP-H Neuro Start: 04/25/24 17:10 Freq: Status: Active Protocol: Document 04/26/24 10:45 SAK (Rec: 04/27/24 08:12 [facility] [id number]) Sensation Evaluation Gross Sensation Gross Sensation WNL PT-OP-J Posture/Palpation/Skin Start: 04/25/24 17:10 Freq: Status: Active Protocol: Document 04/26/24 10:47 SAK (Rec: 04/26/24 12:04 SAK [id number]) Skin Assessment Edema Assessment Bilateral Leg Edema Type Non-Pitting Edema Appearance Dimpled,Puffy Subjective Edema Description Pain Comments palpable nodules brendan LE's, worst medial right LE sup/med knee PT-OP-K Range of Motion Start: 04/25/24 17:10 Freq: Status: Active Protocol: Document 04/26/24 10:45 SAK (Rec: 04/27/24 08:12 [facility] [id number]) Shoulder Goniometric Range of Motion Shoulder brendan Shoulder ROM WFL Yes Elbow/Forearm Range of Motion Elbow/Forearm brendan Elbow/Forearm ROM WFL Yes Hip Goniometric Range of Motion Hip brendan Hip ROM WFL Yes Knee Goniometric Range of Motion Knee brendan Knee ROM WFL No Knee ROM Limitations Knee ROM Limitations Swelling Comments swelling and lipedema Ankle and Foot Goniometric Range of Motion Ankle and Foot brendan Ankle/Foot ROM WFL Yes PT-OP-N Lymphedema Start: 04/25/24 17:10 Freq: Status: Active Protocol: Document 05/30/24 13:13 SAK (Rec: 05/30/24 13:36 SAK Laptop) Lymphedema Measurements Lower Extremity Circumference Measurements left MT Heads 24.3 cm Mid-foot 24.8 cm Medial Malleolus 28.8 cm 10 cm From Medial Malleolus 46.7 cm 20 cm From Medial Malleolus 53.8 cm 30 cm From Medial Malleolus 54.8 cm 40 cm From Medial Malleolus 58.3 cm 50 cm From Medial Malleolus 63.8 cm 60 cm From Medial Malleolus 66.2 cm 70 cm From Medial Malleolus 82.9 cm Knee Joint 58.3 cm right MT Heads 24.7 cm Mid-foot 24.3 cm Medial Malleolus 29.9 cm 10 cm From Medial Malleolus 50.7 cm 20 cm From Medial Malleolus 56.2 cm 30 cm From Medial Malleolus 58 cm 40 cm From Medial Malleolus 60.7 cm 50 cm From Medial Malleolus 67.4 cm 60 cm From Medial Malleolus 69.5 cm 70 cm From Medial Malleolus 74.8 cm Knee Joint 58 cm - waist 113.5 cm widest hip 132.4 cm under breasts 103.5cm PT-OP-Q Treatments Start: 04/25/24 17:10 Freq: Status: Active Protocol: Document 06/07/24 08:10 AB (Rec: 06/07/24 09:47 AB Laptop) Lymphedema Treatment Manual Lymphatic Drainage Location brendan LE's and UE's with patient review technique Duration 53 Comments also anterior and posterior drains added to MLD Lymphedema Wrapping Body Location brendan LE's ankles to knees Materials Bioflect bilateral LE's Other 3 min Sequential Lymphedema Exercises Location brendan UEs and LE's Duration 19 Comments X 12 heel slide, bridge, SLR, glute sets, ankle pumps, hip abd, breathing from diaphragm, heel raises bilateral, mini squat with UE use X 3 limited by pain, Nu step L1 -L3 seat at 8, X 12 min post MLD and Bioflect donning. Compression Garment Assessment Compression Garment Assessment Details Patient into session with Bioflect, will consider UE's concerned about too hot in summer with both UE's and LE's PT-OP-T Assessment and Plan Start: 04/25/24 17:10 Freq: Status: Active Protocol: Document 06/07/24 08:10 AB (Rec: 06/07/24 09:47 AB Laptop) Physical Therapy Assessment Goals Two Impairment LYmphedema Life Impact scale 47% Short Term Goal (STG) Decrease Lymphedema Life Impact Scale to no greater than 35% as measure of improved activity tolerance and quality of life. 05/30/24: Patient demosntrating much improved understanding of lipolymphedema and how to manage. Self bandaging difficult. Doing dry brushing every night, exercises, elevates. STG Duration 06/09/24 Occasional Babysitter Goal (LTG) Decrease Lymphedema Life Impact Scale to no greater than 20% as measure of improved activity tolerance and quality of life. LTG Duration 07/27/24 One Impairment Lipedema and lymphedema brendan LE 's, lipedema brendan UE's Short Term Goal (STG) Patient will be instructed in all aspects of lymphedema and lipedema self-care to include skin care, elevation, self- massage, self-bandaging/ compression options, and lymphedema exercises. 05/30/24: goal met STG Duration 06/09/24 Halfway Goal (LTG) Decrease patient?s lymphedema and lipedema to a stable level (no increase or decrease greater than 1 cm over the course of 1 week), patient to be independent with all aspects of self-care for lymphedema, and will obtain appropriate compression garment for lymphedema management in the home. 05/30/24: goal progress LTG Duration 07/27/24 Assessment Summary Assessment Patient into session with Bioflect, not bandages. Patient comments she was measured last session, and isn 't measured each session. Patient reports considering Bioflect for UE's, but is concerned about being too hot. Physical Therapy Plan Frequency and Duration Frequency of Treatment 20 Duration of treatment (weeks) 12 Plan of Care Start Date 04/27/24 Plan of Care End Date 07/28/24 Therapeutic Interventions Therapeutic Interventions Home Exercise Program, Lymphedema Management,Manual Therapy,Patient/Caregiver Education,Self-Care/Home Management,Soft Tissue Mobilization,Taping, Therapeutic Activities, Therapeutic Exercises Modalities Vasopneumatic Devices Next Visit Focus/Plan Next Note Type Treatment Note Next Visit Plan Continue CDT, consider bandaging to upper thighs next session/ bandaging UE's if patient brings in bandages; patient to wear looser pants and is now receptive.
--- NOTE | 2024-06-07 10:41 | PT.OTN ---
Current Diagnoses Localized adiposity (06/07/24) Lipomatosis, not elsewhere classified (06/07/24) Lymphedema, not elsewhere classified (06/07/24) Edema, unspecified (06/07/24) Physical Therapy Treatment Note PT-OP-A Visit Information Start: 04/25/24 17:10 Freq: Status: Active Protocol: Document 06/07/24 08:10 AB (Rec: 06/07/24 09:47 AB Laptop) Out-Patient Physical Therapy Visit Information Visit Information Visit Type Treatment Note Visit Start Time 08:19 Visit Stop Time 09:38 Visit Number 5 Number of [employer] Visits 1 Evaluation Information Evaluation Date 04/26/24 PT-OP-B Current Condition Start: 04/25/24 17:10 Freq: Status: Active Protocol: Document 05/31/24 08:11 SAK (Rec: 05/31/24 08:32 SAK Laptop) Current Condition History of Current Condition Onset Date 62 yrs. Current Complaints worsening swelling in legs, hips, abdomen. History of Current Condition Had swelling in her legs since her teens, no treatment until recently. 2-3 years ago after researching online started using vibration plate, tries to walk and use E-bike but limited due to OA, no local place to go to pool. Doing anti-inflammatory diet. Worsening swelling in leg right greater than left. sot diagnosed, was up to 325 now down to 248 on semi-glutide. wears knee high compression garments current ones thinks 20-30 mm Hg. Legs have gotten worsen with puberty, childbirth, and menopause, continues to worsen, has nodules under skin, brusises easily, and has signififcant hyperextension in knees. Left leg hurts worst. More edema by the end of the day. Diagnosed with lipedema 2 years ago, feels has known has had her whole life but difficulty getting doctors to understand and has increased swelling end of day including into feet (lipo-lymphedema) Treatment Goals Patient/Caregiver Goals decreasing lipo-lymphedema, and be able to self manage PT-OP-C Subjective Start: 04/25/24 17:10 Freq: Status: Active Protocol: Document 06/07/24 08:10 AB (Rec: 06/07/24 09:47 AB Laptop) OP-PT Subjective Patient Comments Patient Comments Patient reports she has the Bioflect is wearing Bioflect into session, did bandage all weekend. Patient reports measuring was done last session. PT-OP-F Manual Assessment Start: 04/25/24 17:10 Freq: Status: Active Protocol: Document 04/26/24 10:45 SAK (Rec: 04/27/24 08:12 [facility] [id number]) Manual Assessments Joint Mobility Assessment Joint Mobility Assessment hypermobility at knees PT-OP-H Neuro Start: 04/25/24 17:10 Freq: Status: Active Protocol: Document 04/26/24 10:45 SAK (Rec: 04/27/24 08:12 [facility] [id number]) Sensation Evaluation Gross Sensation Gross Sensation WNL PT-OP-J Posture/Palpation/Skin Start: 04/25/24 17:10 Freq: Status: Active Protocol: Document 04/26/24 10:47 SAK (Rec: 04/26/24 12:04 SAK [id number]) Skin Assessment Edema Assessment Bilateral Leg Edema Type Non-Pitting Edema Appearance Dimpled,Puffy Subjective Edema Description Pain Comments palpable nodules brendan LE's, worst medial right LE sup/med knee PT-OP-K Range of Motion Start: 04/25/24 17:10 Freq: Status: Active Protocol: Document 04/26/24 10:45 SAK (Rec: 04/27/24 08:12 [facility] [id number]) Shoulder Goniometric Range of Motion Shoulder brendan Shoulder ROM WFL Yes Elbow/Forearm Range of Motion Elbow/Forearm brendan Elbow/Forearm ROM WFL Yes Hip Goniometric Range of Motion Hip brendan Hip ROM WFL Yes Knee Goniometric Range of Motion Knee brendan Knee ROM WFL No Knee ROM Limitations Knee ROM Limitations Swelling Comments swelling and lipedema Ankle and Foot Goniometric Range of Motion Ankle and Foot brendan Ankle/Foot ROM WFL Yes PT-OP-N Lymphedema Start: 04/25/24 17:10 Freq: Status: Active Protocol: Document 05/30/24 13:13 SAK (Rec: 05/30/24 13:36 SAK Laptop) Lymphedema Measurements Lower Extremity Circumference Measurements left MT Heads 24.3 cm Mid-foot 24.8 cm Medial Malleolus 28.8 cm 10 cm From Medial Malleolus 46.7 cm 20 cm From Medial Malleolus 53.8 cm 30 cm From Medial Malleolus 54.8 cm 40 cm From Medial Malleolus 58.3 cm 50 cm From Medial Malleolus 63.8 cm 60 cm From Medial Malleolus 66.2 cm 70 cm From Medial Malleolus 82.9 cm Knee Joint 58.3 cm right MT Heads 24.7 cm Mid-foot 24.3 cm Medial Malleolus 29.9 cm 10 cm From Medial Malleolus 50.7 cm 20 cm From Medial Malleolus 56.2 cm 30 cm From Medial Malleolus 58 cm 40 cm From Medial Malleolus 60.7 cm 50 cm From Medial Malleolus 67.4 cm 60 cm From Medial Malleolus 69.5 cm 70 cm From Medial Malleolus 74.8 cm Knee Joint 58 cm - waist 113.5 cm widest hip 132.4 cm under breasts 103.5cm PT-OP-Q Treatments Start: 04/25/24 17:10 Freq: Status: Active Protocol: Document 06/07/24 08:10 AB (Rec: 06/07/24 09:47 AB Laptop) Lymphedema Treatment Manual Lymphatic Drainage Location brendan LE's and UE's with patient review technique Duration 53 Comments also anterior and posterior drains added to MLD Lymphedema Wrapping Body Location brendan LE's ankles to knees Materials Bioflect bilateral LE's Other 3 min Sequential Lymphedema Exercises Location brendan UEs and LE's Duration 19 Comments X 12 heel slide, bridge, SLR, glute sets, ankle pumps, hip abd, breathing from diaphragm, heel raises bilateral, mini squat with UE use X 3 limited by pain, Nu step L1 -L3 seat at 8, X 12 min post MLD and Bioflect donning. Compression Garment Assessment Compression Garment Assessment Details Patient into session with Bioflect, will consider UE's concerned about too hot in summer with both UE's and LE's PT-OP-T Assessment and Plan Start: 04/25/24 17:10 Freq: Status: Active Protocol: Document 06/07/24 08:10 AB (Rec: 06/07/24 09:47 AB Laptop) Physical Therapy Assessment Goals Two Impairment LYmphedema Life Impact scale 47% Short Term Goal (STG) Decrease Lymphedema Life Impact Scale to no greater than 35% as measure of improved activity tolerance and quality of life. 05/30/24: Patient demosntrating much improved understanding of lipolymphedema and how to manage. Self bandaging difficult. Doing dry brushing every night, exercises, elevates. STG Duration 06/09/24 Occupational Therapist'S Assistant Goal (LTG) Decrease Lymphedema Life Impact Scale to no greater than 20% as measure of improved activity tolerance and quality of life. LTG Duration 07/27/24 One Impairment Lipedema and lymphedema brendan LE 's, lipedema brendan UE's Short Term Goal (STG) Patient will be instructed in all aspects of lymphedema and lipedema self-care to include skin care, elevation, self- massage, self-bandaging/ compression options, and lymphedema exercises. 05/30/24: goal met STG Duration 06/09/24 Intermediate Goal (LTG) Decrease patient?s lymphedema and lipedema to a stable level (no increase or decrease greater than 1 cm over the course of 1 week), patient to be independent with all aspects of self-care for lymphedema, and will obtain appropriate compression garment for lymphedema management in the home. 05/30/24: goal progress LTG Duration 07/27/24 Assessment Summary Assessment Patient into session with Bioflect, not bandages. Patient comments she was measured last session, and isn 't measured each session. Patient reports considering Bioflect for UE's, but is concerned about being too hot. Physical Therapy Plan Frequency and Duration Frequency of Treatment 20 Duration of treatment (weeks) 12 Plan of Care Start Date 04/27/24 Plan of Care End Date 07/28/24 Therapeutic Interventions Therapeutic Interventions Home Exercise Program, Lymphedema Management,Manual Therapy,Patient/Caregiver Education,Self-Care/Home Management,Soft Tissue Mobilization,Taping, Therapeutic Activities, Therapeutic Exercises Modalities Vasopneumatic Devices Next Visit Focus/Plan Next Note Type Treatment Note Next Visit Plan Continue CDT, consider bandaging to upper thighs next session/ bandaging UE's if patient brings in bandages; patient to wear looser pants and is now receptive.
--- NOTE | 2024-06-08 16:00 | PT.OTN ---
Current Diagnoses Localized adiposity (06/08/24) Lipomatosis, not elsewhere classified (06/08/24) Lymphedema, not elsewhere classified (06/08/24) Edema, unspecified (06/08/24) Physical Therapy Treatment Note PT-OP-A Visit Information Start: 04/25/24 17:10 Freq: Status: Active Protocol: Document 06/08/24 08:14 SAK (Rec: 06/08/24 08:20 SAK Laptop) Out-Patient Physical Therapy Visit Information Visit Information Visit Type Treatment Note Visit Start Time 08:15 Visit Stop Time 09:40 Visit Number 6 Number of DIRECTOR OF EVENT SALES Visits 0 Evaluation Information Evaluation Date 04/26/24 PT-OP-B Current Condition Start: 04/25/24 17:10 Freq: Status: Active Protocol: Document 06/08/24 08:14 SAK (Rec: 06/08/24 08:20 SAK Laptop) Current Condition History of Current Condition Onset Date 62 yrs. Current Complaints worsening swelling in legs, hips, abdomen. History of Current Condition Had swelling in her legs since her teens, no treatment until recently. 2-3 years ago after researching online started using vibration plate, tries to walk and use E-bike but limited due to OA, no local place to go to pool. Doing anti-inflammatory diet. Worsening swelling in leg right greater than left. sot diagnosed, was up to 325 now down to 248 on semi-glutide. wears knee high compression garments current ones thinks 20-30 mm Hg. Legs have gotten worsen with puberty, childbirth, and menopause, continues to worsen, has nodules under skin, brusises easily, and has signififcant hyperextension in knees. Left leg hurts worst. More edema by the end of the day. Diagnosed with lipedema 2 years ago, feels has known has had her whole life but difficulty getting doctors to understand and has increased swelling end of day including into feet (lipo-lymphedema) Treatment Goals Patient/Caregiver Goals decreasing lipo-lymphedema, and be able to self manage PT-OP-C Subjective Start: 04/25/24 17:10 Freq: Status: Active Protocol: Document 06/08/24 08:14 SAK (Rec: 06/08/24 08:20 SAK Laptop) OP-PT Subjective Patient Comments Patient Comments Has been bandaging on the weekend, most nights likes Bioflect LE garment and has ordered 2 more. Considering trying Czalis as well. PT-OP-F Manual Assessment Start: 04/25/24 17:10 Freq: Status: Active Protocol: Document 04/26/24 10:45 SAK (Rec: 04/27/24 08:12 [facility] [id number]) Manual Assessments Joint Mobility Assessment Joint Mobility Assessment hypermobility at knees PT-OP-H Neuro Start: 04/25/24 17:10 Freq: Status: Active Protocol: Document 04/26/24 10:45 SAK (Rec: 04/27/24 08:12 [facility] [id number]) Sensation Evaluation Gross Sensation Gross Sensation WNL PT-OP-J Posture/Palpation/Skin Start: 04/25/24 17:10 Freq: Status: Active Protocol: Document 04/26/24 10:47 SAK (Rec: 04/26/24 12:04 SAK [id number]) Skin Assessment Edema Assessment Bilateral Leg Edema Type Non-Pitting Edema Appearance Dimpled,Puffy Subjective Edema Description Pain Comments palpable nodules brendan LE's, worst medial right LE sup/med knee PT-OP-K Range of Motion Start: 04/25/24 17:10 Freq: Status: Active Protocol: Document 04/26/24 10:45 SAK (Rec: 04/27/24 08:12 [facility] [id number]) Shoulder Goniometric Range of Motion Shoulder brendan Shoulder ROM WFL Yes Elbow/Forearm Range of Motion Elbow/Forearm brendan Elbow/Forearm ROM WFL Yes Hip Goniometric Range of Motion Hip brendan Hip ROM WFL Yes Knee Goniometric Range of Motion Knee brendan Knee ROM WFL No Knee ROM Limitations Knee ROM Limitations Swelling Comments swelling and lipedema Ankle and Foot Goniometric Range of Motion Ankle and Foot brendan Ankle/Foot ROM WFL Yes PT-OP-N Lymphedema Start: 04/25/24 17:10 Freq: Status: Active Protocol: Document 06/08/24 08:13 SAK (Rec: 06/08/24 08:41 SAK Laptop) Lymphedema Measurements Lower Extremity Circumference Measurements left MT Heads 23.7 cm Mid-foot 25.3 cm Medial Malleolus 28.7 cm 10 cm From Medial Malleolus 46.7 cm 20 cm From Medial Malleolus 53.5 cm 30 cm From Medial Malleolus 53 cm 40 cm From Medial Malleolus 57.4 cm 50 cm From Medial Malleolus 63.7 cm 60 cm From Medial Malleolus 66.5 cm 70 cm From Medial Malleolus 82.5 cm Knee Joint 54.7 cm right MT Heads 24.7 cm Mid-foot 24.8 cm Medial Malleolus 28.5 cm 10 cm From Medial Malleolus 49.5 cm 20 cm From Medial Malleolus 55 cm 30 cm From Medial Malleolus 57.7 cm 40 cm From Medial Malleolus 59.8 cm 50 cm From Medial Malleolus 65.9 cm 60 cm From Medial Malleolus 70.2 cm 70 cm From Medial Malleolus 76.9 cm Knee Joint 57 cm PT-OP-Q Treatments Start: 04/25/24 17:10 Freq: Status: Active Protocol: Document 06/08/24 08:14 [facility] (Rec: 06/08/24 08:20 SAK Laptop) Lymphedema Treatment Manual Lymphatic Drainage Location brendan LE's and UE's with patient review technique Duration 53 Comments also anterior and posterior drains added to MLD Lymphedema Wrapping Body Location brendan LE's ankles to knees Materials Bioflect bilateral LE's Other 3 min Sequential Lymphedema Exercises Location brendan UEs and LE's Duration 19 Comments X 12 heel slide, bridge, SLR, glute sets, ankle pumps, hip abd, head lift breathing from diaphragm, heel raises bilateral, mini squat with UE use X 3 limited by pain, Nu step L1 -L3 seat at 8, X 12 min post MLD and Bioflect donning. Compression Garment Assessment Compression Garment Assessment Details wearing Bioflect with good tolerance. PT-OP-T Assessment and Plan Start: 04/25/24 17:10 Freq: Status: Active Protocol: Document 06/08/24 08:14 [facility] (Rec: 06/08/24 08:20 [facility] Laptop) Physical Therapy Assessment Impairments Impairments Activity Tolerance,Edema,Pain, Soft Tissue Mobility Goals Two Impairment LYmphedema Life Impact scale 47% Short Term Goal (STG) Decrease Lymphedema Life Impact Scale to no greater than 35% as measure of improved activity tolerance and quality of life. 05/30/24: Patient demosntrating much improved understanding of lipolymphedema and how to manage. Self bandaging difficult. Doing dry brushing every night, exercises, elevates. 06/08/24: goal met STG Duration 06/09/24 Front Desk Person Goal (LTG) Decrease Lymphedema Life Impact Scale to no greater than 20% as measure of improved activity tolerance and quality of life. LTG Duration 07/27/24 One Impairment Lipedema and lymphedema brendan LE 's, lipedema brendan UE's Short Term Goal (STG) Patient will be instructed in all aspects of lymphedema and lipedema self-care to include skin care, elevation, self- massage, self-bandaging/ compression options, and lymphedema exercises. 05/30/24: goal met STG Duration goal met [facility] Goal (LTG) Decrease patient?s lymphedema and lipedema to a stable level (no increase or decrease greater than 1 cm over the course of 1 week), patient to be independent with all aspects of self-care for lymphedema, and will obtain appropriate compression garment for lymphedema management in the home. 05/30/24: goal progress LTG Duration 07/27/24 Assessment Summary Assessment Good progress in all goal areas. Circumferential measurements variable but mostly decreased. Patient compliant to all aspects of self care. She has obtained Bioflect compression garments with good tolerance, bandages at night and on weekends. Awaiting delievery of sequential pneumatic pump, otherwise no further PT needs identified at this time. Will be on hold for PT until pump delivered. Physical Therapy Plan Frequency and Duration Frequency of Treatment 20 Duration of treatment (weeks) 12 Plan of Care Start Date 04/27/24 Plan of Care End Date 07/28/24 Therapeutic Interventions Therapeutic Interventions Home Exercise Program, Lymphedema Management,Manual Therapy,Patient/Caregiver Education,Self-Care/Home Management,Soft Tissue Mobilization,Taping, Therapeutic Activities, Therapeutic Exercises Modalities Vasopneumatic Devices Hold Physical Therapy Reason For Hold Hold until receive sequential pneumatic pump. Next Visit Focus/Plan Next Note Type Treatment Note Next Visit Plan Train in use of sequential pneumatic pump.
--- NOTE | 2024-06-09 10:37 | PT.OPPN ---
Current Diagnoses Localized adiposity (06/08/24) Lipomatosis, not elsewhere classified (06/08/24) Lymphedema, not elsewhere classified (06/08/24) Edema, unspecified (06/08/24) Physical Therapy Progress Note PT-OP-A Visit Information Start: 04/25/24 17:10 Freq: Status: Active Protocol: Document 06/09/24 13:13 SAK (Rec: 05/30/24 13:36 SAK Laptop) Out-Patient Physical Therapy Visit Information Visit Information Visit Type Treatment Note Visit Start Time 13: Visit Stop Time 14:25 Visit Number 3 Evaluation Information Evaluation Date 04/26/24 PT-OP-B Current Condition Start: 04/25/24 17:10 Freq: Status: Active Protocol: Document 06/09/24 13:13 SAK (Rec: 05/30/24 13:36 SAK Laptop) Current Condition History of Current Condition Onset Date 62 yrs. Current Complaints worsening swelling in legs, hips, abdomen. History of Current Condition Had swelling in her legs since her teens, no treatment until recently. 2-3 years ago after researching online started using vibration plate, tries to walk and use E-bike but limited due to OA, no local place to go to pool. Doing anti-inflammatory diet. Worsening swelling in leg right greater than left. sot diagnosed, was up to 325 now down to 248 on semi-glutide. wears knee high compression garments current ones thinks 20-30 mm Hg. Legs have gotten worsen with puberty, childbirth, and menopause, continues to worsen, has nodules under skin, brusises easily, and has signififcant hyperextension in knees. Left leg hurts worst. More edema by the end of the day. 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 Compliant with skin care, elevating, self MLD, compression, exercise, and using vibration plate. Very interested in obtaining sequential pneumatic pump. Has ordered Bioflect compression garments; pantyhose style. Was able to walk at grocery store for short trip instead of use motorized cart while bandaged. Increased LE lymphedema end of day, has returned to work and notices difference. Very interested in obtaining sequential pneumatic pump for home use. PT-OP-F Manual Assessment Start: 04/25/24 17:10 Freq: Status: Active Protocol: Document 04/26/24 10:45 SAK (Rec: 04/27/24 08:12 SAK [id number]) Manual Assessments Joint Mobility Assessment Joint Mobility Assessment hypermobility at knees PT-OP-H Neuro Start: 04/25/24 17:10 Freq: Status: Active Protocol: Document 04/26/24 10:45 SAK (Rec: 04/27/24 08:12 SAK [id number]) Sensation Evaluation Gross Sensation Gross Sensation WNL PT-OP-J Posture/Palpation/Skin Start: 04/25/24 17:10 Freq: Status: Active Protocol: Document 04/26/24 10:47 SAK (Rec: 04/26/24 12:04 SAK [id number]) Skin Assessment Edema Assessment Bilateral Leg Edema Type Non-Pitting Edema Appearance Dimpled,Puffy Subjective Edema Description Pain Comments palpable nodules brendan LE's, worst medial right LE sup/med knee PT-OP-K Range of Motion Start: 04/25/24 17:10 Freq: Status: Active Protocol: Document 04/26/24 10:45 SAK (Rec: 04/27/24 08:12 SAK [id number]) Shoulder Goniometric Range of Motion Shoulder Measured in Degrees brendan Shoulder ROM WFL Yes Elbow/Forearm Range of Motion Elbow/Forearm Measured in Degrees brendan Elbow/Forearm ROM WFL Yes Hip Goniometric Range of Motion Hip Measured in Degrees brendan Hip ROM WFL Yes Knee Goniometric Range of Motion Knee Measured in Degrees brendan Knee ROM WFL No Knee ROM Limitations Knee ROM Limitations Swelling Comments swelling and lipedema Ankle and Foot Goniometric Range of Motion Ankle and Foot Measured in Degrees brendan Ankle/Foot ROM WFL Yes PT-OP-N Lymphedema Start: 04/25/24 17:10 Freq: Status: Active Protocol: Document 06/09/24 13:13 [facility] (Rec: 05/30/24 13:36 [facility] Laptop) Lymphedema Measurements Lower Extremity Circumference Measurements left MT Heads 24.3 cm Mid-foot 24.8 cm Medial Malleolus 28.8 cm 10 cm From Medial Malleolus 46.7 cm 20 cm From Medial Malleolus 53.8 cm 30 cm From Medial Malleolus 54.8 cm 40 cm From Medial Malleolus 58.3 cm 50 cm From Medial Malleolus 63.8 cm 60 cm From Medial Malleolus 66.2 cm 70 cm From Medial Malleolus 82.9 cm Knee Joint 58.3 cm right MT Heads 24.7 cm Mid-foot 24.3 cm Medial Malleolus 29.9 cm 10 cm From Medial Malleolus 50.7 cm 20 cm From Medial Malleolus 56.2 cm 30 cm From Medial Malleolus 58 cm 40 cm From Medial Malleolus 60.7 cm 50 cm From Medial Malleolus 67.4 cm 60 cm From Medial Malleolus 69.5 cm 70 cm From Medial Malleolus 74.8 cm Knee Joint 58 cm - waist 113.5 cm widest hip 132.4 cm under breasts 103.5cm PT-OP-T Assessment and Plan Start: 04/25/24 17:10 Freq: Status: Active Protocol: Document 06/09/24 13:13 [facility] (Rec: 05/30/24 13:36 [facility] Laptop) Physical Therapy Assessment Impairments Impairments Activity Tolerance,Edema,Pain, Soft Tissue Mobility Goals Two Impairment LYmphedema Life Impact scale 47% Short Term Goal (STG) Decrease Lymphedema Life Impact Scale to no greater than 35% as measure of improved activity tolerance and quality of life. 05/30/24: Patient demosntrating much improved understanding of lipolymphedema and how to manage. Self bandaging difficult. Doing dry brushing every night, exercises, elevates. STG Duration 06/09/24 [facility] Goal (LTG) Decrease Lymphedema Life Impact Scale to no greater than 20% as measure of improved activity tolerance and quality of life. LTG Duration 07/27/24 One Impairment Lipedema and lymphedema brendan LE 's, lipedema brendan UE's Short Term Goal (STG) Patient will be instructed in all aspects of lymphedema and lipedema self-care to include skin care, elevation, self- massage, self-bandaging/ compression options, and lymphedema exercises. 05/30/24: goal met STG Duration 06/09/24 [facility] Goal (LTG) Decrease patient?s lymphedema and lipedema to a stable level (no increase or decrease greater than 1 cm over the course of 1 week), patient to be independent with all aspects of self-care for lymphedema, and will obtain appropriate compression garment for lymphedema management in the home. 05/30/24: goal progress LTG Duration 07/27/24 Assessment Summary Assessment Patient has been seen in physical therapy for over 30 days and continues to have challenges in managing her lipo-lymphedema. Her legs are more swollen by the end of the work day and she has to use a motorized scooter at grocery store. She has been compliant with elevation, self MLD, exercise, skin care, and use of compression bandaging and garments for compression for LE's and abdomen. We have used a basic LE Airos pump during treatments in PT but this pushes more fluid into her proximal LE's and abdomen. Despite PT and all self care as above her lipo-lymphedema is difficult to manage. 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 Due to body size from lipedema has difficulty reaching her LE's. Feel she would benefit highly from the use of a sequential pneumatic pump to assist her in her self care. She is highly receptive and interested in the use of a sequential pneumatic pump. Due to the lipedema and resulting lymphedema affecting her brendan LE's and abdomen she will require pants style garment for most beneficial treatment. Physical Therapy Plan Frequency and Duration Frequency of Treatment 20 Duration of treatment (weeks) 12 Plan of Care Start Date 04/27/24 Plan of Care End Date 07/28/24 Therapeutic Interventions Therapeutic Interventions Home Exercise Program, Lymphedema Management,Manual Therapy,Patient/Caregiver Education,Self-Care/Home Management,Soft Tissue Mobilization,Taping, Therapeutic Activities, Therapeutic Exercises Modalities Vasopneumatic Devices Next Visit Focus/Plan Next Note Type Treatment Note Next Visit Plan Continue CDT, evaluate fit of Bioflect, continue bandaging and use of compression tights for compression until receives . Request order for sequential pneumatic pump.
--- NOTE | 2024-06-29 13:30 | PT.OTN ---
Current Diagnoses Localized adiposity (06/29/24) Lipomatosis, not elsewhere classified (06/29/24) Lymphedema, not elsewhere classified (06/29/24) Edema, unspecified (06/29/24) Physical Therapy Treatment Note PT-OP-A Visit Information Start: 04/25/24 17:10 Freq: Status: Active Protocol: Document 06/29/24 13:01 SAK (Rec: 06/29/24 13:30 SAK Laptop) Out-Patient Physical Therapy Visit Information Visit Information Visit Type Treatment Note Visit Start Time 13:01 Visit Stop Time 13:29 Visit Number 7 Number of EXTRAS CASTING DIRECTOR Visits 0 Evaluation Information Evaluation Date 04/26/24 PT-OP-B Current Condition Start: 04/25/24 17:10 Freq: Status: Active Protocol: Document 06/29/24 13:01 SAK (Rec: 06/29/24 13:30 SAK Laptop) Current Condition History of Current Condition Onset Date 62 yrs. Current Complaints worsening swelling in legs, hips, abdomen. History of Current Condition Had swelling in her legs since her teens, no treatment until recently. 2-3 years ago after researching online started using vibration plate, tries to walk and use E-bike but limited due to OA, no local place to go to pool. Doing anti-inflammatory diet. Worsening swelling in leg right greater than left. sot diagnosed, was up to 325 now down to 248 on semi-glutide. wears knee high compression garments current ones thinks 20-30 mm Hg. Legs have gotten worsen with puberty, childbirth, and menopause, continues to worsen, has nodules under skin, brusises easily, and has signififcant hyperextension in knees. Left leg hurts worst. More edema by the end of the day. Diagnosed with lipedema 2 years ago, feels has known has had her whole life but difficulty getting doctors to understand and has increased swelling end of day including into feet and feeling increased edema into legs and abdomen as well (lipo- lymphedema) PT-OP-C Subjective Start: 04/25/24 17:10 Freq: Status: Active Protocol: Document 06/29/24 13:01 SAK (Rec: 06/29/24 13:30 SAK Laptop) OP-PT Subjective Patient Comments Patient Comments Has lost a few more pounds. Exdcited to get sequential pneumatic pump. PT-OP-F Manual Assessment Start: 04/25/24 17:10 Freq: Status: Active Protocol: Document 04/26/24 10:45 SAK (Rec: 04/27/24 08:12 SAK [id number]) Manual Assessments Joint Mobility Assessment Joint Mobility Assessment hypermobility at knees PT-OP-H Neuro Start: 04/25/24 17:10 Freq: Status: Active Protocol: Document 04/26/24 10:45 SAK (Rec: 04/27/24 08:12 SAK [id number]) Sensation Evaluation Gross Sensation Gross Sensation WNL PT-OP-J Posture/Palpation/Skin Start: 04/25/24 17:10 Freq: Status: Active Protocol: Document 04/26/24 10:47 SAK (Rec: 04/26/24 12:04 SAK [id number]) Skin Assessment Edema Assessment Bilateral Leg Edema Type Non-Pitting Edema Appearance Dimpled,Puffy Subjective Edema Description Pain Comments palpable nodules brendan LE's, worst medial right LE sup/med knee PT-OP-K Range of Motion Start: 04/25/24 17:10 Freq: Status: Active Protocol: Document 04/26/24 10:45 SAK (Rec: 04/27/24 08:12 SAK [id number]) Shoulder Goniometric Range of Motion Shoulder brendan Shoulder ROM WFL Yes Elbow/Forearm Range of Motion Elbow/Forearm brendan Elbow/Forearm ROM WFL Yes Hip Goniometric Range of Motion Hip brendan Hip ROM WFL Yes Knee Goniometric Range of Motion Knee brendan Knee ROM WFL No Knee ROM Limitations Knee ROM Limitations Swelling Comments swelling and lipedema Ankle and Foot Goniometric Range of Motion Ankle and Foot brendan Ankle/Foot ROM WFL Yes PT-OP-N Lymphedema Start: 04/25/24 17:10 Freq: Status: Active Protocol: Document 06/08/24 08:13 SAK (Rec: 06/08/24 08:41 SAK Laptop) Lymphedema Measurements Lower Extremity Circumference Measurements left MT Heads 23.7 cm Mid-foot 25.3 cm Medial Malleolus 28.7 cm 10 cm From Medial Malleolus 46.7 cm 20 cm From Medial Malleolus 53.5 cm 30 cm From Medial Malleolus 53 cm 40 cm From Medial Malleolus 57.4 cm 50 cm From Medial Malleolus 63.7 cm 60 cm From Medial Malleolus 66.5 cm 70 cm From Medial Malleolus 82.5 cm Knee Joint 54.7 cm right MT Heads 24.7 cm Mid-foot 24.8 cm Medial Malleolus 28.5 cm 10 cm From Medial Malleolus 49.5 cm 20 cm From Medial Malleolus 55 cm 30 cm From Medial Malleolus 57.7 cm 40 cm From Medial Malleolus 59.8 cm 50 cm From Medial Malleolus 65.9 cm 60 cm From Medial Malleolus 70.2 cm 70 cm From Medial Malleolus 76.9 cm Knee Joint 57 cm PT-OP-Q Treatments Start: 04/25/24 17:10 Freq: Status: Active Protocol: Document 06/29/24 13:01 SAK (Rec: 06/29/24 13:30 SAK Laptop) Lymphedema Treatment Other Other Instructed in set up and use of Airos 8 sequential pneumatic pump. Patient demonstrated good understanding. Patient issued pump for home use through [facility]. PT-OP-T Assessment and Plan Start: 04/25/24 17:10 Freq: Status: Active Protocol: Document 06/29/24 13:01 SAK (Rec: 06/29/24 13:30 SAK Laptop) Physical Therapy Assessment Impairments Impairments Activity Tolerance,Edema,Pain, Soft Tissue Mobility Goals Two Impairment LYmphedema Life Impact scale 47% Short Term Goal (STG) Decrease Lymphedema Life Impact Scale to no greater than 35% as measure of improved activity tolerance and quality of life. 05/30/24: Patient demosntrating much improved understanding of lipolymphedema and how to manage. Self bandaging difficult. Doing dry brushing every night, exercises, elevates. 06/08/24: goal met STG Duration goal met Science Consultant Goal (LTG) Decrease Lymphedema Life Impact Scale to no greater than 20% as measure of improved activity tolerance and quality of life. LTG Duration goal met One Impairment Lipedema and lymphedema brendan LE 's, lipedema brendan UE's Short Term Goal (STG) Patient will be instructed in all aspects of lymphedema and lipedema self-care to include skin care, elevation, self- massage, self-bandaging/ compression options, and lymphedema exercises. 05/30/24: goal met STG Duration goal met Longterm Goal (LTG) Decrease patient?s lymphedema and lipedema to a stable level (no increase or decrease greater than 1 cm over the course of 1 week), patient to be independent with all aspects of self-care for lymphedema, and will obtain appropriate compression garment for lymphedema management in the home. 05/30/24: goal progress LTG Duration goal met Physical Therapy Plan Discharge Physical Therapy Discharge Reasons Goals Met
== END 2024-08-15 10:36 | disposition home or self-care (01) ==
LOC: PHYS 13:00
PROVIDERS: Family Provider Nurse Practitioner Family; PCP Nurse Practitioner Family; Referring Provider Nurse Practitioner Family; Visit Provider Nurse Practitioner Family
DX: R60.9 Edema, unspecified (principal); I89.0 Lymphedema, not elsewhere classified; E88.2 Lipomatosis, not elsewhere classified; E65 Localized adiposity
CPT/HCPCS: 29581; 97110; 97140; 97535